=== PATIENT | female | born 1950 | race Caucasian/White ===

== ENCOUNTER 2017-06-19 08:00 | Outpatient (CLI) | payer MEDICARE, BC | END 2017-06-19 23:59 | disposition home or self-care (01) | LOC: LAB.R 08:00 | PROVIDERS: ATTEND Physician Assistant Medical | DX: R89.9 Unspecified abnormal finding in specimens from other organs, systems and tissues (principal); Z79.899 Other long term (current) drug therapy | CPT/HCPCS: 83921 ==

== ENCOUNTER 2017-06-19 09:56 | Outpatient (CLI) | payer MEDICARE, BC ==
[2017-06-19 10:26] LABS: BASOPHILS % (AUTO) 0.7 %; EOSINOPHILS # (AUTO) 0.2 10^3/uL (0.0-0.7); EOSINOPHILS % (AUTO) 3.6 %; HCT - HEMATOCRIT 41.4 % (37.0-47.0); HGB - HEMOGLOBIN 14.1 g/dL (12.0-16.0); LYMPHOCYTES # (AUTO) 1.8 10^3/uL (1.5-3.5); LYMPHOCYTES % (AUTO) 28.2 %; MEAN CORPUSCULAR HEMOGLOBIN 30.4 pg (27.0-31.0); MEAN CORPUSCULAR VOLUME 89.6 fL (81.0-99.0); MEAN PLATELET VOLUME 7.2 fL (7.9-10.8); MONOCYTES # (AUTO) 0.7 10^3/uL (0.0-1.0); MONOCYTES % (AUTO) 10.6 %; NEUTROPHILS # (AUTO) 3.7 10^3/uL (1.5-6.6); NEUTROPHILS % (AUTO) 56.9 %; RED BLOOD COUNT 4.62 10^6/uL (4.20-5.40); RED CELL DISTRIBUTION WIDTH 13.1 % (12.0-15.0); UNCORRECTED WHITE BLOOD COUNT 6.4 x10^3/uL; WHITE BLOOD COUNT 6.4 x10^3/uL (4.8-10.8)
[2017-06-19 10:41] LABS: ALBUMIN/GLOBULIN RATIO 1.2 (1.0-2.2); BILIRUBIN,TOTAL 0.6 mg/dL (0.2-1.0); BUN - BLOOD UREA NITROGEN 17 mg/dL (6-20); CALCIUM 9.8 mg/dL (8.5-10.3); CARBON DIOXIDE - CO2 27 mmol/L (21-32); CHLORIDE 103 mmol/L (101-111); CHOL/HDL RATIO 5.8 (<4.4); CHOLESTEROL 277 mg/dL; CREATININE 0.9 mg/dL (0.4-1.0); GFR - MDRD 62 (>89); GLUCOSE 88 mg/dL (70-100); HDL CHOLESTEROL 48 mg/dL; LDL/HDL RATIO 4.1 (<4.4); POTASSIUM 4.1 mmol/L (3.5-5.0); SODIUM 139 mmol/L (135-145); TOTAL PROTEIN 8.6 g/dL (6.7-8.2); TRIGLYCERIDES 169 mg/dL; VLDL CHOLESTEROL 34 mg/dL
== END 2017-06-19 09:57 | disposition home or self-care (01) ==
LOC: LAB 09:56
PROVIDERS: ATTEND Physician Assistant Medical
DX: Z82.49 Family history of ischemic heart disease and other diseases of the circulatory system (principal); Z79.899 Other long term (current) drug therapy; E78.5 Hyperlipidemia, unspecified; Z11.59 Encounter for screening for other viral diseases; E03.9 Hypothyroidism, unspecified
CPT/HCPCS: 36415; 80053; 80061; 83090; 84443; 85025; 86141; 86803

== ENCOUNTER 2017-06-19 10:25 | Outpatient (CLI) | payer MEDICARE, BC ==
--- NOTE | 2017-06-19 13:00 | XRAY Report ---
RIGHT WRIST THREE VIEWS: 06/19/2017 CLINICAL HISTORY: Pain. FINDINGS: Three views of the right wrist are performed. There is generalized bony demineralization. There is advanced degenerative change at the 1st metacarpocarpal and triscaphe articulations. No acut e fracture, malalignment or other finding. IMPRESSION: ADVANCED DEGENERATIVE CHANGE RIGHT 1ST METACARPOCARPAL AND TRISCAPHE ARTICULATIONS. JOB #: [id number] EXT JOB #:[id number]
--- NOTE | 2017-06-19 13:05 | XRAY Report ---
RIGHT HAND THREE VIEWS: 06/19/2017 CLINICAL HISTORY: Pain. COMPARISON: 01/04/2016. FINDINGS: Slight progression of advanced 1st metacarpocarpal and triscaphe degenerative changes. Ost eoarthritic degenerative change of the interphalangeal joints of the fingers with seagull deformity a t the DIP joints of the index, ring, and little fingers. No superimposed acute fracture, acute malali gnment or other finding. IMPRESSION: STABLE TO MINIMALLY PROGRESSED MODERATE TO SEVERE DEGENERATIVE CHANGES RIGHT HAND WITHOU T SUPERIMPOSED ACUTE FINDINGS. JOB #: [id number] EXT JOB #:[id number]
== END 2017-06-19 10:26 | disposition home or self-care (01) ==
LOC: DI 10:25
PROVIDERS: ATTEND Physician Assistant Medical
DX: M19.031 Primary osteoarthritis, right wrist (principal); M19.041 Primary osteoarthritis, right hand; E78.2 Mixed hyperlipidemia; Z79.899 Other long term (current) drug therapy; Z82.49 Family history of ischemic heart disease and other diseases of the circulatory system; Z11.59 Encounter for screening for other viral diseases; E03.9 Hypothyroidism, unspecified
CPT/HCPCS: 36415; 80053; 80061; 83090; 84443; 85025; 86141; 86803

== ENCOUNTER 2017-06-25 07:31 | Outpatient (CLI) | payer MEDICARE, BC ==
--- NOTE | 2017-06-25 09:43 | Ultrasound Report ---
ULTRASOUND NECK SOFT TISSUES: 06/25/2017 CLINICAL INDICATION: Swelling. TECHNIQUE: Real-time scanning was performed with office services representative static images obtained. FINDINGS: Ultrasound of the region of swelling identified by the patient was performed. Normal size d cervical lymph nodes are noted. No lymphadenopathy is appreciated. No abnormal fluid collection i s seen. IMPRESSION: NORMAL SIZED LEFT CERVICAL LYMPH NODES, CORRELATING WITH THE PALPABLE ABNORMALITIES. JOB #: [id number] EXT JOB #:[id number]
== END 2017-06-25 07:32 | disposition home or self-care (01) ==
LOC: DI 07:31
PROVIDERS: ATTEND Physician Assistant Medical
DX: R22.1 Localized swelling, mass and lump, neck (principal)
CPT/HCPCS: 76536

== ENCOUNTER 2017-08-24 07:43 | Outpatient (CLI) | payer MEDICARE, BC ==
--- NOTE | 2017-08-25 17:57 | Mammography Report ---
DIGITAL SCREENING MAMMOGRAM: 08/24/2017 CLINICAL INDICATION: A 66-year-old for screening. COMPARISON: 07/2016, 02/2015, 12/2012, 02/2011. TECHNIQUE: Routine CC and MLO projections were obtained of the breasts. The breasts again demonstrate heterogeneously dense fibroglandular parenchyma bilaterally. Coarse an d punctate, typically benign calcifications are present. Intramammary lymph nodes are stable. No garcia spicious masses, clustered microcalcifications, or regions of architectural distortion are identified . IMPRESSION: BENIGN FINDINGS. RECOMMENDATION: ROUTINE ANNUAL SCREENING UNLESS OTHERWISE CLINICALLY INDICATED. BIRADS CATEGORY: 2, BENIGN FINDINGS. STANDARD QUALIFYING STATEMENTS 1. This examination was reviewed with the aid of Computed-Aided Detection (CAD). 2. A negative or benign imaging report should not delay biopsy if clinically suspicious findings are present. Consider surgical consultation if warranted. More than 5% of cancers are not identified b y imaging. 3. Dense breasts may obscure an underlying neoplasm. JOB #: [id number] EXT JOB #:[id number]
== END 2017-08-24 07:44 | disposition home or self-care (01) ==
LOC: DI 07:43
PROVIDERS: ATTEND Physician Assistant Medical
DX: Z12.31 Encounter for screening mammogram for malignant neoplasm of breast (principal)
CPT/HCPCS: 77067

== ENCOUNTER 2017-08-24 07:45 | Outpatient (CLI) | payer MEDICARE, BC ==
--- NOTE | 2017-08-24 14:25 | DEXA Report ---
DEXA SCAN: 08/24/2017 CLINICAL INDICATION: Postmenopausal. TECHNIQUE: Dual energy x-ray absorptiometry (DXA) was performed on a [employer] system. Regions measured are the AP spine, femoral neck, and, if needed, forearm. COMPARISON: None. In accordance with the International Society for Clinical Densitometry (ISCD) guidelines, data from previous exams may be reanalyzed using current recommendations and techniques. This is done to allow a more accurate basis for comparison with the current study. FINDINGS LUMBAR SPINE DATA: REGION BMD (g/cm/cm) T-SCORE Z-SCORE L1 0.918 -1.8 0.0 L2 1.006 -1.6 0.1 L3 1.060 -1.2 0.6 L4 0.977 -1.9 -0.1 TOTAL L1-L4 0.993 -1.6 0.2 NOTE: All evaluable vertebrae are used for classification. HIP DATA: REGION BMD (g/cm/cm) T-SCORE Z-SCORE Neck 0.673 -2.6 -1.0 TOTAL 0.647 -2.9 -1.4 NOTE: The femoral neck or total proximal femur, whichever is lowest, is used for classification. IMPRESSION THE WHO CLASSIFICATION BASED ON THE INTERNATIONAL REFERENCE STANDARD: OSTEOPOROSIS. FRACTURE RISK: HIGH. RECOMMENDATION: Patients with diagnosis of osteoporosis or osteopenia should have regular bone mineral density assessment. For those eligible for Medicare, routine testing is allowed once every 2 years. Testing frequency can be increased for patients who have rapidly progressing disease or for those who are receiving medical therapy to restore bone mass. COMMENT: World Health Organization (WHO) definitions for osteoporosis and osteopenia: NORMAL BMD: T-score at -1.0 or higher, fracture risk is low. OSTEOPENIA BMD: T-score between -1.0 and -2.5, fracture risk is increased. OSTEOPOROSIS BMD: T-score at -2.5 or lower, fracture risk high. National Osteoporosis Foundation recommends: 1. Obtain adequate dietary calcium (at least 1200 mg per day) and vitamin D (400 -800 international units per day). 2. Participate, as appropriate, in regular weightbearing and muscle- strengthening exercise. 3. Avoid tobacco use and reduce alcohol and caffeine intake. 4. For more detailed information see the website at www.NOF.org. MTDD
== END 2017-08-24 07:46 | disposition home or self-care (01) ==
LOC: DI 07:45
PROVIDERS: ATTEND Physician Assistant Medical
DX: M81.0 Age-related osteoporosis without current pathological fracture (principal); Z78.0 Asymptomatic menopausal state
CPT/HCPCS: 77080

== ENCOUNTER 2017-08-24 07:46 | Outpatient (CLI) | payer MEDICARE, BC | END 2017-08-24 07:47 | disposition home or self-care (01) | LOC: DI 07:46 | PROVIDERS: ATTEND Internal Medicine Cardiovascular Disease | DX: R06.00 Dyspnea, unspecified (principal); Z82.49 Family history of ischemic heart disease and other diseases of the circulatory system; M81.0 Age-related osteoporosis without current pathological fracture; Z78.0 Asymptomatic menopausal state | CPT/HCPCS: 77080; 93306 ==

== ENCOUNTER 2017-09-03 09:04 | Outpatient (CLI) | payer MEDICARE, BC ==
--- NOTE | 2017-09-03 13:43 | CARDIAC PROCEDURE NOTE ---
DATE OF SERVICE: 09/03/2017 00:00:00 PROCEDURE: Cardiac exercise tolerance test ORDERING PROVIDER: Dr. Sasha Pascal PRIMARY CARE PROVIDER: Es Carrillo PA-C CLINICAL HISTORY: 66-year-old female without known coronary artery disease. Symptoms: Dyspnea on exertion. Procedures: Previous ETT. Risk factors - Age, family history, and hyperlipidemia. Vital signs: BP 106/70, pulse 79, height 62 inches, weight 135 pounds. PROCEDURAL FINDINGS: The patient performed treadmill exercise, using a Ab protocol, completing 9 minutes, 13 seconds, and completing an estimated workload of 10.1 metabolic equivalents (METS). Maximum blood pressure was 130/64 with a maximum heart rate of 150 bpm, or 98% MPHR for age. Her first recovery BP dropped to 106/60, but was asymptomatic. The patient had no chest pain and stopped due to knee arthritis. The resting ECG showed normal sinus rhythm with a slight intraventricular conduction delay, seen in lead V2 only. Maximum ST segment depression with stress was less than 0.5 mm and upsloping. There was no ectopy. The one minute recovery heart rate was within normal limits. Maximal HRxBP = 19 , 500. FINAL IMPRESSION 1. Anginal index of 0, negative stress ECG for angina. 2. Negative cardiac stress test for ischemia by electrocardiographic criteria. 3. No ectopy. 4. Await findings of myocardial perfusion scan. JOB #: [id number] EXT JOB #:[id number] MTDD
[2017-09-03 18:23] VITALS: BP 106/70
--- NOTE | 2017-09-07 10:22 | XRAY Report ---
CARDIOVASCULAR TREADMILL TEST: There was no imaging performed for this exam. Procedure notes and results available in the EMR. STEPHANIE
== END 2017-09-03 09:05 | disposition home or self-care (01) ==
LOC: DI 09:04
PROVIDERS: ATTEND Internal Medicine Cardiovascular Disease
DX: R06.00 Dyspnea, unspecified (principal); E03.9 Hypothyroidism, unspecified; Z79.899 Other long term (current) drug therapy; E78.5 Hyperlipidemia, unspecified
CPT/HCPCS: 36415; 84443; 86141; 93017

== ENCOUNTER 2017-10-09 10:56 | Outpatient (CLI) | payer MEDICARE, BC ==
[2017-10-09 11:21] LABS: BASOPHILS # (AUTO) 0.1 10^3/uL (0.0-0.1); EOSINOPHILS # (AUTO) 0.2 10^3/uL (0.0-0.7); EOSINOPHILS % (AUTO) 3.7 %; HGB - HEMOGLOBIN 12.7 g/dL (12.0-16.0); LYMPHOCYTES % (AUTO) 33.5 %; MEAN CORPUSCULAR HEMOGLOBIN 30.4 pg (27.0-31.0); MEAN CORPUSCULAR HGB CONC 33.9 g/dL (32.0-36.0); MEAN CORPUSCULAR VOLUME 89.7 fL (81.0-99.0); MEAN PLATELET VOLUME 7.2 fL (7.9-10.8); MONOCYTES # (AUTO) 0.6 10^3/uL (0.0-1.0); MONOCYTES % (AUTO) 10.8 %; PLT - PLATELET COUNT 225 10^3/uL (130-450); RED BLOOD COUNT 4.17 10^6/uL (4.20-5.40); RED CELL DISTRIBUTION WIDTH 13.1 % (12.0-15.0); WHITE BLOOD COUNT 5.8 x10^3/uL (4.8-10.8)
[2017-10-09 11:37] LABS: ALBUMIN 4.3 g/dL (3.2-5.5); ALBUMIN/GLOBULIN RATIO 1.3 (1.0-2.2); BILIRUBIN,TOTAL 0.5 mg/dL (0.2-1.0); CALCIUM 9.4 mg/dL (8.5-10.3); CREATININE 0.8 mg/dL (0.4-1.0); TOTAL PROTEIN 7.5 g/dL (6.7-8.2)
== END 2017-10-09 10:57 | disposition home or self-care (01) ==
LOC: LAB 10:56
PROVIDERS: ATTEND Internal Medicine
DX: R53.83 Other fatigue (principal); R89.9 Unspecified abnormal finding in specimens from other organs, systems and tissues; E03.9 Hypothyroidism, unspecified
CPT/HCPCS: 36415; 80053; 82550; 84443; 85025

== ENCOUNTER 2017-12-01 10:30 | Outpatient (CLI) | payer MEDICARE, BC | END 2017-12-01 10:31 | disposition home or self-care (01) | LOC: LAB.R 10:30 | PROVIDERS: ATTEND Physician Assistant Medical | DX: B34.9 Viral infection, unspecified (principal) | CPT/HCPCS: 87275; 87276 ==

== ENCOUNTER 2018-03-15 16:13 | Outpatient (CLI) | payer MEDICARE, BC ==
--- NOTE | 2018-03-16 04:32 | XRAY Report ---
Procedure Date: 03/15/2018 Accession Number: [id number] / [id number] Procedure: XR - Chest 2 View X-Ray CPT Code: 25510 FULL RESULT: EXAM: CHEST RADIOGRAPHY EXAM DATE: 03/15/2018 04:43 PM. CLINICAL HISTORY: COMM ACQUIRED PNEUMONIA,REACTIVE AIRWAY DISEASE. COMPARISON: 08/10/2015. TECHNIQUE: 2 views. FINDINGS: Lungs/Pleura: No focal opacities evident. No pleural effusion. No pneumothorax. Normal volumes. Mediastinum: Heart and mediastinal contours are unremarkable. Other: None. IMPRESSION: Normal 2-view chest radiography. RADIA
== END 2018-03-15 16:14 | disposition home or self-care (01) ==
LOC: DI 16:13
PROVIDERS: ATTEND Physician Assistant Medical
DX: J18.9 Pneumonia, unspecified organism (principal)
CPT/HCPCS: 71046

== ENCOUNTER 2018-05-25 08:48 | Outpatient (CLI) | payer MEDICARE, BC ==
[2018-05-25 10:18] LABS: CHOL/HDL RATIO 5.6 (<4.4); CHOLESTEROL 242 mg/dL; HB2 TOTAL 14.5 g/dL; HDL CHOLESTEROL 43 mg/dL; HEMOGLOBIN A1C 0.53 g/dL; HEMOGLOBIN A1C % 5.5 % (4.6-6.2); LDL CHOLESTEROL,CALCULATED 163 mg/dL; LDL/HDL RATIO 3.8 (<4.4); VLDL CHOLESTEROL 36 mg/dL
== END 2018-05-25 08:49 | disposition home or self-care (01) ==
LOC: LAB 08:48
PROVIDERS: ATTEND Internal Medicine Cardiovascular Disease
DX: E78.5 Hyperlipidemia, unspecified (principal)
CPT/HCPCS: 36415; 80061; 83036; 83721

== ENCOUNTER 2018-07-19 08:00 | Outpatient (CLI) | payer MEDICARE, BC ==
[2018-07-19 18:28] LABS: BASOPHILS % (AUTO) 0.9 %; EOSINOPHILS % (AUTO) 0.7 %; HGB - HEMOGLOBIN 13.8 g/dL (12.0-16.0); LYMPHOCYTES # (AUTO) 1.2 10^3/uL (1.5-3.5); MEAN CORPUSCULAR HEMOGLOBIN 29.8 pg (27.0-31.0); MEAN CORPUSCULAR HGB CONC 33.6 g/dL (32.0-36.0); MEAN CORPUSCULAR VOLUME 88.8 fL (81.0-99.0); MONOCYTES # (AUTO) 0.6 10^3/uL (0.0-1.0); MONOCYTES % (AUTO) 15.8 %; NEUTROPHILS # (AUTO) 1.7 10^3/uL (1.5-6.6); NEUTROPHILS % (AUTO) 49.6 %; PLT - PLATELET COUNT 218 10^3/uL (130-450); RED BLOOD COUNT 4.62 10^6/uL (4.20-5.40); RED CELL DISTRIBUTION WIDTH 13.4 % (12.0-15.0); WHITE BLOOD COUNT 3.5 x10^3/uL (4.8-10.8)
[2018-07-19 19:09] LABS: RHEUMATOID FACTOR NEGATIVE (Negative)
[2018-07-19 19:12] LABS: ALBUMIN/GLOBULIN RATIO 1.1 (1.0-2.2); BILIRUBIN,TOTAL 0.6 mg/dL (0.2-1.0); CALCIUM 8.9 mg/dL (8.5-10.3); CREATININE 0.9 mg/dL (0.4-1.0); CRP - C-REACTIVE PROTEIN 3.3 mg/dL (0-1.0); TOTAL PROTEIN 7.8 g/dL (6.7-8.2)
[2018-07-19 22:14] LABS: BILIRUBIN,URINE NEGATIVE (NEGATIVE); GLUCOSE, URINE (UA) NEGATIVE (NEGATIVE); KETONES,URINE (UA) TRACE mg/dL (NEGATIVE); LEUKOCYTE ESTERASE, URINE NEGATIVE (NEGATIVE); NITRITE,URINE NEGATIVE (NEGATIVE); OCCULT BLOOD,URINE SMALL (NEGATIVE); PH,URINE 5.5 PH (5.0-7.5); PROTEIN,URINE NEGATIVE (NEGATIVE); UROBILINOGEN,URINE 0.2 (NORMAL) E.U./dL (NORMAL)
[2018-07-19 22:35] LABS: CLARITY,URINE CLEAR (CLEAR)
[2018-07-19 22:36] LABS: BACTERIA,URINE None Seen /HPF (None Seen); RBC,URINE 0-5 /HPF (0-5); SQUAMOUS EPITHELIAL CELL,UR FEW Squamous (<= Few)
[2018-07-22 17:51] LABS: ANA SCREEN POSITIVE (NEGATIVE)
== END 2018-07-19 08:01 | disposition home or self-care (01) ==
LOC: LAB.R 08:00
PROVIDERS: ATTEND Physician Assistant Medical
DX: R50.9 Fever, unspecified (principal)
CPT/HCPCS: 80053; 81001; 81003; 83615; 83690; 84443; 85025; 85651; 86038; 86140; 86430; 87086

== ENCOUNTER 2018-07-21 13:22 | Outpatient (CLI) | payer MEDICARE, BC ==
[2018-07-22 13:01] LABS: HEPATITIS A IGM NON-REACTIVE (NON-REACTIVE); HEPATITIS B CORE ANTIBODY IGM NON-REACTIVE (NON-REACTIVE); HEPATITIS B SURFACE ANTIGEN NON-REACTIVE (NON-REACTIVE); HEPATITIS C ANTIBODY NON-REACTIVE (NON-REACTIVE)
== END 2018-07-21 13:23 | disposition home or self-care (01) ==
LOC: LAB.N 13:22
PROVIDERS: ATTEND Physician Assistant Medical
DX: R79.89 Other specified abnormal findings of blood chemistry (principal); R94.5 Abnormal results of liver function studies; R50.9 Fever, unspecified
CPT/HCPCS: 36415; 80074

== ENCOUNTER 2018-07-27 13:19 | Outpatient (CLI) | payer MEDICARE, BC ==
[2018-07-27 18:44] LABS: BASOPHILS # (AUTO) 0.1 10^3/uL (0.0-0.1); BASOPHILS % (AUTO) 1.1 %; EOSINOPHILS # (AUTO) 0.4 10^3/uL (0.0-0.7); EOSINOPHILS % (AUTO) 8.4 %; HGB - HEMOGLOBIN 12.4 g/dL (12.0-16.0); LYMPHOCYTES # (AUTO) 1.7 10^3/uL (1.5-3.5); LYMPHOCYTES % (AUTO) 32.7 %; MEAN CORPUSCULAR HGB CONC 33.3 g/dL (32.0-36.0); MEAN PLATELET VOLUME 7.4 fL (7.9-10.8); MONOCYTES # (AUTO) 0.8 10^3/uL (0.0-1.0); MONOCYTES % (AUTO) 15.1 %; NEUTROPHILS # (AUTO) 2.3 10^3/uL (1.5-6.6); NEUTROPHILS % (AUTO) 42.7 %; PLT - PLATELET COUNT 386 10^3/uL (130-450); RED BLOOD COUNT 4.15 10^6/uL (4.20-5.40); RED CELL DISTRIBUTION WIDTH 13.6 % (12.0-15.0); WHITE BLOOD COUNT 5.3 x10^3/uL (4.8-10.8)
[2018-07-27 19:01] LABS: ALBUMIN 3.7 g/dL (3.2-5.5); ALBUMIN/GLOBULIN RATIO 1.1 (1.0-2.2); BILIRUBIN,TOTAL 0.5 mg/dL (0.2-1.0); CALCIUM 8.3 mg/dL (8.5-10.3); CREATININE 0.8 mg/dL (0.4-1.0); TOTAL PROTEIN 7.2 g/dL (6.7-8.2)
== END 2018-07-27 13:20 | disposition home or self-care (01) ==
LOC: LAB.N 13:19
PROVIDERS: ATTEND Physician Assistant Medical
DX: R79.82 Elevated C-reactive protein (CRP) (principal); R50.9 Fever, unspecified; R79.89 Other specified abnormal findings of blood chemistry
CPT/HCPCS: 36415; 80053; 83615; 83690; 85025; 86140

== ENCOUNTER 2018-09-13 10:07 | Outpatient (CLI) | payer MEDICARE, BC ==
--- NOTE | 2018-09-14 08:35 | Mammography Report ---
Reason: SCREENING MAMMO Procedure Date: 09/13/2018 Accession Number: [id number] / [id number] Procedure: MGN - Screening Mammo Dig Bilat CPT Code: FULL RESULT: EXAM: Screening Mammo Dig Bilat DATE: 09/13/2018 10:27 AM CLINICAL HISTORY: Screening. TECHNIQUE: Bilateral CC and MLO views were obtained. COMPARISON: 08/24/2017 through 03/20/2015 FINDINGS: The breasts demonstrate heterogeneously dense fibroglandular parenchyma bilaterally. Bilateral breasts: There are no suspicious masses, calcifications or areas of distortion. IMPRESSION: Negative examination RECOMMENDATION: Routine annual screening unless otherwise clinically indicated. BI-RADS CATEGORY 1: Negative STANDARD QUALIFYING STATEMENTS: 1. This examination was reviewed with the aid of Computer-Aided Detection (CAD). 2. A negative or benign imaging report should not preclude biopsy if clinically suspicious findings are present. 3. Dense breasts may obscure an underlying neoplasm. 4. This examination was reviewed without the aid of 3D breast imaging (tomosynthesis).
== END 2018-09-13 10:08 | disposition home or self-care (01) ==
LOC: DI.N 10:07
DX: Z12.31 Encounter for screening mammogram for malignant neoplasm of breast (principal)
CPT/HCPCS: 77067

== ENCOUNTER 2018-12-15 09:00 | Outpatient (CLI) | payer MEDICARE, BC ==
--- NOTE | 2018-12-15 11:06 | XRAY Report ---
Reason: R hand pain swelling Procedure Date: 12/15/2018 Accession Number: [id number] / [id number] Procedure: XRN - Hand 3 View RT CPT Code: FULL RESULT: EXAM: RIGHT HAND RADIOGRAPHY EXAM DATE: 12/15/2018 09:23 AM. CLINICAL HISTORY: Right hand pain and swelling. COMPARISON: HAND 3 VIEW RT 06/19/2017 10:45 AM. TECHNIQUE: 3 views. FINDINGS: Bones: No acute fracture appreciated. Joints: Joint space narrowing of the IP and DIP joints of the digits with moderate marginal osteophytes of the second through fifth DIPs. Stable severe productive arthrosis of the base of thumb and moderate to severe degenerative changes of the STT joint of the wrist. Soft Tissues: Mild soft tissue prominence adjacent to digit osteophytosis, similar to the prior exam. No focal soft tissue swelling. IMPRESSION: Stable pattern of osteoarthritis predominantly of the DIP joints of the second through fifth digits and at base of thumb. No acute fracture appreciated. RADIA
== END 2018-12-15 09:01 | disposition home or self-care (01) ==
LOC: DI.N 09:00
PROVIDERS: ATTEND Family Medicine
DX: M19.041 Primary osteoarthritis, right hand (principal)

== ENCOUNTER 2019-01-18 08:00 | Outpatient (CLI) | payer MEDICARE, BC ==
[2019-01-18 12:40] LABS: CHOL/HDL RATIO 5.9 (<4.4); CHOLESTEROL 246 mg/dL; HDL CHOLESTEROL 42 mg/dL; LDL CHOLESTEROL,CALCULATED 165 mg/dL; LDL/HDL RATIO 3.9 (<4.4); VLDL CHOLESTEROL 39 mg/dL
== END 2019-01-18 08:01 | disposition home or self-care (01) ==
LOC: LAB.N 08:00
PROVIDERS: ATTEND Internal Medicine Cardiovascular Disease
DX: E78.5 Hyperlipidemia, unspecified (principal)
CPT/HCPCS: 36415; 80061; 83721

== ENCOUNTER 2019-02-21 12:27 | Emergency (ER) | payer OTHER, MEDICARE, BC ==
[2019-02-21 12:44] VITALS: BP 122/69
--- NOTE | 2019-02-21 13:29 | ED Physician Documentation ---
PD HPI TRUNK INJURY - Stated complaint Stated Complaint: RIB PX - Chief complaint Chief Complaint: Trauma Ch/Bk - History obtained from History obtained from: Patient - History of Present Illness Location: Right chest Type of injury: Fall, Blunt / blow Timing - onset: How many days ago (5) Timing - duration: Days (5) Timing - details: Abrupt onset, Still present Quality: Pain, Spasm, Sharp Improved by: Rest, Immobilization Worsened by: Moving, Palpating Associated symtptoms: No: Weakness, Numbness, Tingling, Swelling, Discoloration, Feel faint, Syncope Contributing factors: No: Anticoagulated Where injury occured: Work Similar symptoms before: Has not had sx before Recently seen: Not recently seen - Additional information Additional information: 68-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 She did not have other injuries from the fall. She is complaining of progressive pain in the right anterior lateral chest wall that is made it difficult for her to sleep. She is not having difficulty breathing she is having trouble with pain with coughing and pain with any movement. The pain is much worse yesterday. Review of Systems Constitutional: denies: Fever Eyes: denies: Decreased vision Ears: denies: Ear pain Nose: denies: Congestion Throat: denies: Sore throat Cardiac: reports: Chest pain / pressure. denies: Palpitations, Pedal edema, Calf pain Respiratory: denies: Dyspnea, Cough GI: denies: Abdominal Pain, Nausea, Vomiting : denies: Dysuria PD PAST MEDICAL HISTORY - Past Medical History Cardiovascular: High cholesterol Respiratory: Asthma Musculoskeletal: Osteoarthritis - Past Surgical History Ortho: Other /[employer]: Hysterectomy HEENT: Tonsil/Adenoidectomy - Present Medications Home Medications: Ambulatory Orders Medication Instructions Recorded Confirmed traMADol [Ultram] 50 - 100 mg PO Q6H PRN #20 tablet 02/21/19 - Allergies Allergies/Adverse Reactions: Allergies Allergy/AdvReac Type Severity Reaction Status Date / Time erythromycin base Allergy Unknown Verified 02/21/19 12:45 Penicillins Allergy Unknown Verified 02/21/19 12:45 Sulfa (Sulfonamide Allergy Unknown Verified 02/21/19 12:45 Antibiotics) PD ED PE NORMAL - Vitals Vital signs reviewed: Yes (normal ) - General General: Alert and oriented X 3, No acute distress, Well developed/nourished, Other (winches with movement or coughing ) - HEENT HEENT: Atraumatic, PERRL - Neck Neck: Supple, no meningeal sign, No bony TTP - Cardiac Cardiac: RRR, No murmur - Respiratory Respiratory: No respiratory distress, Clear bilaterally, Other (tenderness to the chest wall anteriolaterally over the 5th,6th rib) - Abdomen Abdomen: Soft, Non tender - Back Back: No CVA TTP, No spinal TTP - Derm Derm: Normal color, Warm and dry, No rash - Extremities Extremities: No deformity, No edema - Neuro Neuro: Alert and oriented X 3, hadoop infrastructure 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 No pneumothorax. Clear lungs.), EMP read indepedently, See rad report Departure - Departure Disposition: 01 Home, Self Care Clinical Impression: Contusion of chest wall Qualifiers: Encounter type: initial encounter Laterality: right Qualified Code(s): S20.211A - Contusion of right front wall of thorax, initial encounter Condition: Stable Instructions: ED Contusion Vs Minor Fx Rib Follow-Up: Omer Park MD [Primary Care Provider] - Prescriptions: traMADol [Ultram] 50 - 100 mg PO Q6H PRN #20 tablet PRN Reason: Pain
--- NOTE | 2019-02-21 14:07 | XRAY Report ---
Reason: pain Procedure Date: 02/21/2019 Accession Number: [id number] / [id number] Procedure: XR - Ribs w/PA Chest RT CPT Code: FULL RESULT: EXAM: RIGHT RIB RADIOGRAPHY EXAM DATE: 02/21/2019 01:41 PM. CLINICAL HISTORY: Pain. COMPARISON: CHEST 2 VIEW 03/15/2018 4:37 PM. TECHNIQUE: 1 view of the chest and 2 views of the ribs. FINDINGS: Bones: Normal. No fracture or bone lesion. Lungs: No focal opacities. No pneumothorax. No pleural effusions. Mediastinum: Heart and mediastinal contours are unremarkable. Other: None. IMPRESSION: No acute displaced rib fractures. No pneumothorax. Clear lungs. RADIA
== END 2019-02-21 14:17 | disposition home or self-care (01) ==
LOC: ED 12:27
DX: S20.211A Contusion of right front wall of thorax, initial encounter (principal); W03.XXXA Other fall on same level due to collision with another person, initial encounter; Y93.01 Activity, walking, marching and hiking; Y92.213 High school as the place of occurrence of the external cause; Y99.0 Civilian activity done for income or pay
CPT/HCPCS: 99283

== ENCOUNTER 2019-11-21 08:41 | Outpatient (CLI) | payer MEDICARE, BC ==
--- NOTE | 2019-11-29 13:17 | Mammography Report ---
Reason: ROUTINE MAMMO Procedure Date: 11/21/2019 Accession Number: [id number] / [id number] Procedure: NIK - Screening Mammo w/Sammy CPT Code: Final Report FULL RESULT: EXAM: Screening Mammo w/Sammy DATE: 11/21/2019 9:20 AM CLINICAL HISTORY: Screening encounter. TECHNIQUE: (B) - Bilateral CC and MLO views were obtained. COMPARISON: 09/13/2018 through 03/24/2011. PARENCHYMAL PATTERN: (D) - The breast(s) demonstrate(s) heterogeneously dense fibroglandular parenchyma. FINDINGS: There are no suspicious masses, calcifications, or areas of distortion. IMPRESSION: Negative examination. BI-RADS category 1. RECOMMENDATION: (ANNUAL) - Recommend routine annual screening mammography. BI-RADS CATEGORY: (1) - Negative. STANDARD QUALIFYING STATEMENTS: 1. This examination was not reviewed with the aid of Computer-Aided Detection (CAD). 2. A negative or benign imaging report should not preclude biopsy if clinically suspicious findings are present. 3. Dense breasts may obscure an underlying neoplasm. 4. This examination was reviewed with the aid of 3D breast imaging (tomosynthesis).
== END 2019-11-21 08:42 | disposition home or self-care (01) ==
LOC: DI 08:41
DX: Z12.31 Encounter for screening mammogram for malignant neoplasm of breast (principal)
CPT/HCPCS: 77063; 77067

== ENCOUNTER 2020-07-19 15:03 | Outpatient (CLI) | payer MEDICARE, BC ==
--- NOTE | 2020-07-19 17:27 | XRAY Report ---
PROCEDURE: Hip w/Pelvis 2-3V RT INDICATIONS: RT HIP PAIN TECHNIQUE: AP pelvis with lateral view(s) of the bilateral hip(s). COMPARISON: None. FINDINGS: Bones: Diffuse osteopenia. No fractures or dislocations. Pelvic ring appears intact. No suspicious bony lesions. Lower lumbar spondylosis. Corticated ossifications project over the superolateral aspe ct of the bilateral acetabular rims. These are chronic in appearance. Soft tissues: The visualized bowel gas pattern is normal. No suspicious soft tissue calcifications. IMPRESSION: Right hip without acute radiographic abnormalities. Lower lumbar spondylosis. Reviewed by: Narinder Vick MD on 07/19/2020 5:26 PM PDT Approved by: Narinder Vick MD on 07/19/2020 5:26 PM PDT Station ID: [id number]
== END 2020-07-19 15:04 | disposition home or self-care (01) ==
LOC: DI 15:03
PROVIDERS: ATTEND Internal Medicine
DX: M47.816 Spondylosis without myelopathy or radiculopathy, lumbar region (principal)

== ENCOUNTER 2020-08-21 09:44 | Outpatient (CLI) | payer MEDICARE, BC ==
--- NOTE | 2020-08-21 10:23 | DEXA Report ---
PROCEDURE: Dexa Spine and/or Hip INDICATIONS: SCREENING FOR OSTEOPOROSIS, POSTMENOPAUSAL TECHNIQUE: Dual energy x-ray absorptiometry (DXA) was performed on a [employer] System. Regions measur ed are the AP Spine, femoral neck, and if needed forearm. COMPARISON: 08/24/2017. FINDINGS: Lumbar Spine: Bone Mineral Density 0.986 g/cm/cm,T score -1.6, osteopenia Left Femoral Neck: Bone Mineral Density 0.617 g/cm/cm, T score -3.1, osteoporosis (T score greater or equal to -1.0: NORMAL) (T score from -1.1 to -2.4: OSTEOPENIA) (T score less than or equal to -2.5 to: OSTEOPOROSIS) Impression: OSTEOPOROSIS. Patient is at high risk for fracture. Patients with diagnosis of osteoporosis or osteopenia should have regular bone mineral density assess ment. For those eligible for Medicare, routine testing is allowed once every 2 years. Testing frequ ency can be increased for patients who have rapidly progressing disease or for those who are receivin g medical therapy to restore bone mass. Reviewed by: Narinder Vick MD on 08/21/2020 10:22 AM PST Approved by: Narinder Vick MD on 08/21/2020 10:22 AM PST Station ID: [id number]
== END 2020-08-21 09:45 | disposition home or self-care (01) ==
LOC: DI 09:44
PROVIDERS: ATTEND Internal Medicine
DX: Z13.820 Encounter for screening for osteoporosis (principal); M81.0 Age-related osteoporosis without current pathological fracture
CPT/HCPCS: 77080

== ENCOUNTER 2020-10-12 10:26 | Outpatient (CLI) | payer MEDICARE, BC ==
--- NOTE | 2020-10-12 17:27 | XRAY Report ---
PROCEDURE: Ankle 3 View LT INDICATIONS: LT FOOT AND ANKLE PAIN TECHNIQUE: 3 views of the ankle were acquired. COMPARISON: X-ray foot 10/12/2019 FINDINGS: Bones: No fractures or dislocations. No suspicious bony lesions. Soft tissues: No tibiotalar joint effusion. Achilles tendon appears normal. Mild prominence of the plantar soft tissues are noted. IMPRESSION: 1. No visualized acute fracture or dislocation. However, occult injury cannot be excluded. Recommend short interval imaging follow-up in 7-10 days as clinically indicated for additional evaluation. 2. Mild prominence of the plantar soft tissues. Recommend correlation of potential fasciitis. Reviewed by: Ktae Norman MD on 10/12/2020 5:26 PM PST Approved by: Kate Norman MD on 10/12/2020 5:26 PM PST Station ID: [id number]
--- NOTE | 2020-10-13 06:15 | XRAY Report ---
PROCEDURE: Foot 3 View LT INDICATIONS: LT FOOT AND ANKLE PAIN TECHNIQUE: 3 views of the foot were acquired. COMPARISON: X-ray ankle 10/12/2019 FINDINGS: Bones: No fractures or dislocations. No suspicious bony lesions. Soft tissues: No tibiotalar joint effusion. Achilles tendon appears normal. Mild prominence of the plantar soft tissues are noted. IMPRESSION: 1. No visualized acute fracture or dislocation. However, occult injury cannot be excluded. Recommend short interval imaging follow-up in 7-10 days as clinically indicated for additional evaluation. 2. Mild prominence of the plantar soft tissues. Recommend correlation of potential fasciitis. Reviewed by: Kate Norman MD on 10/12/2020 5:25 PM PST Approved by: Kate Norman MD on 10/12/2020 5:25 PM [facility] Station ID: [id number]
== END 2020-10-12 10:27 | disposition home or self-care (01) ==
LOC: DI.N 10:26
PROVIDERS: ATTEND Physician Assistant
DX: R93.89 Abnormal findings on diagnostic imaging of other specified body structures (principal)

== ENCOUNTER 2020-10-12 19:53 | Outpatient (CLI) | payer MEDICARE, BC ==
--- NOTE | 2020-10-12 21:30 | Ultrasound Report ---
PROCEDURE: Duplex Ext Veins Left INDICATIONS: PAIN IN LLE, PAIN IN LT ANKLE, PAIN IN LT FOOT TECHNIQUE: Real-time imaging, as well as color and pulse Doppler interrogation, were performed of the lower extr emity deep veins from the inguinal ligament to the popliteal fossa. COMPARISON: None. FINDINGS: There is venous thrombosis in the superficial femoral vein, which is nonocclusive and ecce ntrically positioned within the vessel lumen. The remaining deep veins are normally compressible, and free of intraluminal thrombus. Color and pulse Doppler demonstrate normal phasic intraluminal flow. There is normal augmentation response to distal compression maneuver. IMPRESSION: Nonocclusive thrombus in the distal superficial femoral vein medial to the left knee ext ending inferiorly. This may be chronic in nature given the eccentric nonocclusive appearance. Reviewed by: Neville Worthy MD on 10/12/2020 9:28 PM PST Approved by: Neville Worthy MD on 10/12/2020 9:28 PM PST Station ID: [id number]
== END 2020-10-12 19:54 | disposition home or self-care (01) ==
LOC: DI 19:53
PROVIDERS: ATTEND Physician Assistant
DX: I82.812 Embolism and thrombosis of superficial veins of left lower extremity (principal)

== ENCOUNTER 2020-10-22 11:59 | Outpatient (CLI) | payer MEDICARE, BC ==
--- NOTE | 2020-10-22 14:10 | Ultrasound Report ---
PROCEDURE: Duplex Ext Veins Left INDICATIONS: DVT LLE TECHNIQUE: Real-time imaging, as well as color and pulse Doppler interrogation, were performed of the lower extr emity deep veins from the inguinal ligament to the popliteal fossa. COMPARISON: 10/12/2019 FINDINGS: The deep veins are normally compressible, and free of intraluminal thrombus. Color and pu lse Doppler demonstrate normal phasic intraluminal flow. There is normal augmentation response to di stal compression maneuver. IMPRESSION: No sonographic evidence of DVT. Previously demonstrated nonocclusive thrombus in the dis darin superficial femoral vein is no longer identified. Reviewed by: Neville Worthy MD on 10/22/2020 2:08 PM PST Approved by: Neville Worthy MD on 10/22/2020 2:08 PM PST Station ID: [id number]
== END 2020-10-22 12:00 | disposition home or self-care (01) ==
LOC: DI 11:59
PROVIDERS: ATTEND Physician Assistant
DX: I82.812 Embolism and thrombosis of superficial veins of left lower extremity (principal)

== ENCOUNTER 2020-10-31 10:20 | Outpatient (CLI) | payer MEDICARE, BC ==
--- NOTE | 2020-10-31 13:35 | CT Report ---
PROCEDURE: Abdomen/Pelvis WO INDICATIONS: HEMATURIA TECHNIQUE: Noncontrast 5 mm thick sections acquired from the diaphragms to the symphysis. 5 mm coronal and sagi ttal reformats were then performed. For radiation dose reduction, the following was used: automated exposure control, adjustment of mA and/or kV according to patient size. COMPARISON: None. FINDINGS: Image quality: Excellent. ABDOMEN: Lung bases: Lung bases are clear. Heart size is normal. Moderate, partially imaged coronary artery calcification. Solid organs: Liver and spleen are normal in size. Gallbladder is unremarkable. Pancreas is normal in contours. No adrenal nodules. Kidneys are normal in size, without hydronephrosis or nephrolithi asis. Peritoneum and bowel: Unenhanced bowel loops demonstrate normal wall thickness and caliber. No free fluid or air. Nodes and vessels: No retroperitoneal or mesenteric adenopathy by size criteria. Aorta and inferior vena cava are normal in caliber. Moderate abdominal aortic calcification. Miscellaneous: There are necked, fat-containing supraumbilical midline ventral hernia. The neck measu res 6 mm in CC diameter.. PELVIS: The uterus is absent. Miscellaneous: Tiny fat-containing left inguinal hernia. Bones: No suspicious bony lesions. Mild levoscoliosis of lumbar spine. No vertebral body compressio n fractures. IMPRESSION: 1. Etiology of hematuria is not found on this exam. 2. Coronary and systemic atherosclerotic calcification. 3. Tiny supraumbilical and left inguinal hernias containing only fat. Reviewed by: Melisa Knight MD on 10/31/2020 1:34 PM PST Approved by: Melisa Knight MD on 10/31/2020 1:34 PM PST Station ID: [id number]
== END 2020-10-31 10:21 | disposition home or self-care (01) ==
LOC: DI 10:20
PROVIDERS: ATTEND Physician Assistant
DX: R31.9 Hematuria, unspecified (principal); K42.9 Umbilical hernia without obstruction or gangrene; K40.90 Unilateral inguinal hernia, without obstruction or gangrene, not specified as recurrent

== ENCOUNTER 2020-12-17 07:00 | Outpatient (CLI) | payer MEDICARE, BC ==
--- NOTE | 2020-12-18 08:57 | XRAY Report ---
PROCEDURE: Wrist 4 View LT INDICATIONS: L WRIST PX TECHNIQUE: views of the wrist were acquired. COMPARISON: None. FINDINGS: Bones: No fractures or dislocations. No suspicious bony lesions. Triscaphe and first CMC joint dege neration. Prominent osteophyte formation. Soft tissues: No suspicious soft tissue calcifications. IMPRESSION: Degenerative changes as above. If the patient's pain or other symptoms persist, consider further evaluation with MRI. . Reviewed by: Rodo Lombardo MD on 12/18/2020 8:56 AM PDT Approved by: Rodo Lombardo MD on 12/18/2020 8:56 AM PDT Station ID: [id number]
== END 2020-12-17 23:59 | disposition home or self-care (01) ==
LOC: DI.N 07:00
PROVIDERS: ATTEND Family Medicine
DX: M25.532 Pain in left wrist (principal); M19.032 Primary osteoarthritis, left wrist

== ENCOUNTER 2021-02-15 10:04 | Outpatient (CLI) | payer MEDICARE, BC ==
--- NOTE | 2021-02-15 10:45 | XRAY Report ---
PROCEDURE: Chest 2 View X-Ray INDICATIONS: COUGH TECHNIQUE: 2 view(s) of the chest. COMPARISON: 02/21/2019 chest x-ray FINDINGS: Surgical changes and devices: None. Lungs and pleura: No pleural effusions or pneumothorax. Lungs are clear. Mediastinum: Mediastinal contours are normal. Heart size is normal. Bones and chest wall: No suspicious bony abnormalities. Soft tissues appear unremarkable. IMPRESSION: No acute process. Reviewed by: Rhianna Fuentes MD on 02/15/2021 10:44 AM PDT Approved by: Rhianna Fuentes MD on 02/15/2021 10:44 AM PDT Station ID: [id number]
== END 2021-02-15 23:59 | disposition home or self-care (01) ==
LOC: DI.N 10:04
PROVIDERS: ATTEND Family Medicine
DX: R05 Cough (principal); Z20.822 Contact with and (suspected) exposure to COVID-19
CPT/HCPCS: 71046; U0004

== ENCOUNTER 2021-02-15 10:05 | Outpatient (CLI) | payer MEDICARE, BC | END 2021-02-15 23:59 | disposition home or self-care (01) | LOC: LAB.N 10:05 | PROVIDERS: ATTEND Family Medicine | DX: R05 Cough (principal); Z20.822 Contact with and (suspected) exposure to COVID-19 ==

== ENCOUNTER 2021-03-26 10:45 | Outpatient (CLI) | payer MEDICARE, BC ==
--- NOTE | 2021-03-26 17:22 | XRAY Report ---
PROCEDURE: Shoulder 2 View RT INDICATIONS: SPRAIN OF R SHOULDER TECHNIQUE: 2 views of the shoulder were acquired. COMPARISON: None. FINDINGS: Bones: No fractures or dislocations. There is mild to moderate osteoarthritis at the AC joint. No s uspicious bony lesions. Visualized ribs appear intact. Soft tissues: No suspicious soft tissue calcifications. IMPRESSION: Mild to moderate AC joint osteoarthritis. No acute trauma found. Reviewed by: Marquez Messer MD on 03/26/2021 5:20 PM PDT Approved by: Marquez Messer MD on 03/26/2021 5:20 PM PDT Station ID: [id number]
== END 2021-03-26 23:59 | disposition home or self-care (01) ==
LOC: DI.N 10:45
PROVIDERS: ATTEND Nurse Practitioner
DX: S43.491A Other sprain of right shoulder joint, initial encounter (principal); M19.011 Primary osteoarthritis, right shoulder

== ENCOUNTER 2021-07-24 11:51 | Outpatient (CLI) | payer MEDICARE, BC ==
--- NOTE | 2021-08-01 02:21 | XRAY Report ---
PROCEDURE: Knee 3 View RT INDICATIONS: CONTUSION OF R KNEE TECHNIQUE: 3 views of the right knee(s) were acquired. COMPARISON: None. FINDINGS: Bones: No fractures or dislocations. No suspicious bony lesions. Moderate to severe medial and mod erate patellofemoral compartment narrowing. Small paratracheal or osteophytes are present. No erosion s. Soft tissues: Minimal joint effusion. No suspicious soft tissue calcifications. IMPRESSION: Arthritic changes most severe in the medial compartment as above. Reviewed by: Kate Norman MD on 08/01/2021 12:44 AM PDT Approved by: Kate Norman MD on 08/01/2021 12:44 AM PDT Station ID: [id number]
== END 2021-07-24 23:59 ==
LOC: DI.N 11:51
PROVIDERS: ATTEND Nurse Practitioner
DX: S80.01XA Contusion of right knee, initial encounter (principal); M17.11 Unilateral primary osteoarthritis, right knee

== ENCOUNTER 2022-02-05 10:45 | Outpatient (CLI) | payer MEDICARE, BC ==
--- NOTE | 2022-02-05 11:17 | XRAY Report ---
PROCEDURE: Chest 2 View X-Ray INDICATIONS: UNSPECIFIED ASTHMA/ACUTE UPPER RESPIRATORY INFECTION TECHNIQUE: 2 view(s) of the chest. COMPARISON: February 15, 2021 FINDINGS: SUPPORT DEVICES: None. LUNGS/PLEURA: Coarsened interstitial markings. Faint nodular density in the left midlung zone, measur ing up to 9.8 mm. No focal consolidation, pleural effusion or space-occupying pneumothorax. MEDIASTINUM: The cardiomediastinal silhouette is within normal limits. BONES/SOFT TISSUES: No acute abnormality. IMPRESSION: 1.No acute cardiopulmonary abnormality. 2.Faint nodular density in the left midlung zone, measuring 9.[address] imaging for further e valuation. Reviewed by: Willian Graham MD on 02/05/2022 11:15 AM PDT Approved by: Willian Graham MD on 02/05/2022 11:15 AM PDT Station ID: [id number]
== END 2022-02-05 10:46 | disposition home or self-care (01) ==
LOC: DI 10:45
PROVIDERS: ATTEND Internal Medicine
DX: R91.8 Other nonspecific abnormal finding of lung field (principal); J45.909 Unspecified asthma, uncomplicated; J06.9 Acute upper respiratory infection, unspecified

== ENCOUNTER 2022-02-13 14:08 | Outpatient (CLI) | payer MEDICARE, BC ==
--- NOTE | 2022-02-13 17:02 | DEXA Report ---
PROCEDURE: Dexa Spine and/or Hip INDICATIONS: OSTEOPOROSIS TECHNIQUE: Dual energy x-ray absorptiometry (DXA) was performed on a [employer] System. Regions measur ed are the AP Spine, femoral neck, and if needed forearm. COMPARISON: 08/21/2020 and 08/24/2017. FINDINGS: Lumbar Spine: Bone Mineral Density 0.947 g/cm/cm,T score -1.9, osteopenia Left Hip: Bone Mineral Density 0.616 g/cm/cm,T score -3.1, osteoporosis Left Femoral Neck: Bone Mineral Density 0.637 g/cm/cm, T score -2.9, osteoporosis. (T score greater or equal to -1.0: NORMAL) (T score from -1.1 to -2.4: OSTEOPENIA) (T score less than or equal to -2.5 to: OSTEOPOROSIS) Impression: Osteoporosis. Bone marrow density has decreased 0.2% in the interval since prior exam obtained 2019. Patients with diagnosis of osteoporosis or osteopenia should have regular bone mineral density assess ment. For those eligible for Medicare, routine testing is allowed once every 2 years. Testing frequ ency can be increased for patients who have rapidly progressing disease or for those who are receivin g medical therapy to restore bone mass. Reviewed by: Lorena Bhatt MD, PhD on 02/13/2022 5:00 PM PDT Approved by: Lorena Bhatt MD, PhD on 02/13/2022 5:00 PM PDT Station ID: [id number]
== END 2022-02-13 14:09 | disposition home or self-care (01) ==
LOC: DI 14:08
PROVIDERS: ATTEND Obstetrics & Gynecology
DX: M81.0 Age-related osteoporosis without current pathological fracture (principal)

== ENCOUNTER 2022-09-04 06:59 | Outpatient (CLI) | payer MEDICARE, BC ==
--- NOTE | 2022-09-04 10:50 | Ultrasound Report ---
PROCEDURE: Abdomen Limited INDICATIONS: LLQ ABDOMINAL SWELLING, MASS AND LUMP TECHNIQUE: Real-time focused scanning was performed of the abdomen, with image documentation. COMPARISON: None FINDINGS: Ultrasound is performed in the area of clinical concern over an area of a left lower quadr ant swelling. Imaging findings show no evidence for inguinal hernia or other solid or cystic abnormal ity. IMPRESSION: 1. No significant findings in the area of clinical concern. No hernia identified. Reviewed by: Ari Chung MD on 09/04/2022 10:49 AM [facility] Approved by: Ari Chung MD on 09/04/2022 10:49 AM PST Station ID: [id number]
== END 2022-09-04 07:00 | disposition home or self-care (01) ==
LOC: DI 06:59
PROVIDERS: ATTEND Physician Assistant
DX: R19.04 Left lower quadrant abdominal swelling, mass and lump (principal)

== ENCOUNTER 2022-11-20 13:49 | Outpatient (CLI) | payer MEDICARE, BC ==
--- NOTE | 2022-11-20 16:35 | XRAY Report ---
PROCEDURE: Chest 2 View X-Ray INDICATIONS: COUGH,SOB TECHNIQUE: 2 views of the chest were acquired. COMPARISON: Chest x-ray, 02/05/2022. FINDINGS: Surgical changes and devices: None. Lungs and pleura: Mild hyperinflation suggesting COPD. No pleural effusions or pneumothorax. Lungs are clear. Mediastinum: Mediastinal contours are normal. Heart size is normal. Bones and chest wall: No suspicious bony abnormalities. Soft tissues appear unremarkable. IMPRESSION: 1. No acute cardiopulmonary disease. 2. COPD. Reviewed by: Valentín Romano MD on 11/20/2022 4:33 PM PST Approved by: Valentín Romano MD on 11/20/2022 4:33 PM [facility] Station ID: [id number]
== END 2022-11-20 13:50 | disposition home or self-care (01) ==
LOC: DI 13:49
PROVIDERS: ATTEND Physician Assistant
DX: J44.9 Chronic obstructive pulmonary disease, unspecified (principal)

== ENCOUNTER 2022-11-21 09:03 | Emergency (ER) | payer MEDICARE, BC ==
[2022-11-21 09:13] VITALS: BP 123/68
--- NOTE | 2022-11-21 09:17 | ED Physician Documentation ---
PD HPI URI - Stated complaint Stated Complaint: SOA - Chief complaint Chief Complaint: Resp - History obtained from History obtained from: Patient - History of Present Illness Timing - onset: How many weeks ago (1) Timing duration: Weeks (1) Timing details: Gradual onset, Still present (cough and sputum continue to worsen.) Associated symptoms: Chills, Sore throat (scratchy), Productive cough. No: Bilateral edema Contributing factors: COPD / asthma. No: Sick contact, Travel Improves by: Medication Worsened by: Activity Recently seen: Clinic (4 days ago and Rx with prednisone which she has been taking, along with her albuterol MDI/neb, and is not improving (less wheezing moderately, but worsened couhg/sputum).) Review of Systems Constitutional: reports: Chills, Myalgias Cardiac: denies: Chest pain / pressure Respiratory: reports: Dyspnea, Cough, Wheezing GI: denies: Vomiting, Diarrhea PD PAST MEDICAL HISTORY - Past Medical History Cardiovascular: High cholesterol Respiratory: Asthma Musculoskeletal: Osteoarthritis - Past Surgical History 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 HEENT: Tonsil/Adenoidectomy - Present Medications Home Medications: Ambulatory Orders Medication Instructions Recorded Confirmed traMADol [Ultram] 50 - 100 mg PO Q6H PRN #20 tablet 02/21/19 Doxycycline Hyclate 100 mg PO BID 7 Days #14 cap 11/21/22 - Allergies Allergies/Adverse Reactions: Allergies Allergy/AdvReac Type Severity Reaction Status Date / Time erythromycin base Allergy Unknown Verified 11/21/22 09:13 Penicillins Allergy Unknown Verified 11/21/22 09:13 Sulfa (Sulfonamide Allergy Unknown Verified 11/21/22 09:13 Antibiotics) PD ED PE NORMAL - Vitals Vital signs reviewed: Yes (good sats.) - General General: Alert and oriented X 3, No acute distress, Well developed/nourished - HEENT HEENT: Pharynx benign - Neck Neck: Supple, no meningeal sign, No adenopathy - Cardiac Cardiac: RRR, No murmur - Respiratory Respiratory: No respiratory distress. No: Clear bilaterally (some coarse sounds right base and diffuse exp wheezing with cough. ) - Derm Derm: Normal color, Warm and dry Results - Vitals Vitals: Vital Signs - 24 hr 11/21/22 11/21/22 11/21/22 09:08 09:43 09:49 Temperature 36.8 C Heart Rate 75 72 74 Respiratory 18 16 18 Rate Blood Pressure 123/68 O2 Saturation 100 100 Oxygen O2 Source Room air - Labs Labs: Laboratory Tests 11/21/22 09:48 INR (Fingerstick) 2.9 H PD Medical Decision Making - ED course Complexity details: reviewed results (I looked at the chest x-ray she had done yesterday outpatient and it did not show any infiltrates pneumothorax or effusi ons.The radiology report on it was normal as well except showing some hyperaeration consistent with COPD.), considered differential (The patient has had a cough and increased wheezing for over a week. She has been on steroids for 5 days. She is having increasing cough and sputum production and is concerned about secondary bacterial bronchitis. This is not unreasonable.), d/w patient Drug Therapy Requiring Monitoring for Toxicity: check INR coumadin level as will be affected by current steroids and Rx antibiotics. ED course: The patient is concerned about a secondary bronchitis and that she is not improving with just the steroids and inhaler and is having increased sputum production. This has occurred in the past with her asthma flareups. Is not unreasonable actually to go with an antibiotic in the setting and articles in the literature suggest there is a benefit of antibiotics in those with underlying lung disease flareups. She is allergic to several medicines. We settled on doxycycline as a choice and I will send this to [facility]. She is on warfarin and has been on steroids and will be starting antibiotics so we did get a hold blood INR today to establish her level knowing that it will be distorted likely from the medications. Departure - Departure Clinical Impression: Acute asthma exacerbation, Bronchitis, acute, Anticoagulant long-term use Condition: Stable Record reviewed to determine appropriate education?: Yes Follow-Up: Omer Park MD [Primary Care Provider] - Prescriptions: Doxycycline Hyclate 100 mg PO BID 7 Days #14 cap Comments: Continue with your current albuterol inhaler and nebulizer 4 times daily and extra times if needed. Continue with the current steroid dosing. Add doxycycline twice daily for a week. Stay well-hydrated. Continue with your tea and honey for your cough. This works comparable to most other cough medicines. I sent your prescription for the antibiotic to [facility]. Recheck if worsening. Your INR today is 2.9 which is reasonable. Continue with your current medications and Coumadin dose. Recheck your Coumadin level in about a week as the antibiotics can potentially affect the metabolism of the Coumadin.
[2022-11-21] MEDS ORDERED: IPRATROPIUM/ALBUTEROL 3 ML NEB INH STA (09:30)
[2022-11-21] MEDS ORDERED: DOXYCYCLINE 100 MG TABLET PO STA (09:31)
[2022-11-21] MEDS ORDERED: ALBUTEROL NEB 2.5 MG/3 ML INH STA (09:44)
[2022-11-21] MEDS ORDERED: ALBUTEROL NEB 2.5 MG/3 ML INH ONE (09:48)
== END 2022-11-21 10:13 | disposition home or self-care (01) ==
LOC: ED 09:03
DX: J45.901 Unspecified asthma with (acute) exacerbation (principal); J20.9 Acute bronchitis, unspecified; Z79.01 Long term (current) use of anticoagulants
CPT/HCPCS: 36416; 85610; 94640; 99283; 99284; A9270

== ENCOUNTER 2022-12-10 17:03 | Outpatient (CLI) | payer MEDICARE, BC ==
--- NOTE | 2022-12-11 10:13 | Ultrasound Report ---
PROCEDURE: Duplex Ext Veins Left INDICATIONS: LEFT DVT TECHNIQUE: Real-time imaging, as well as color and pulse Doppler interrogation, were performed of the lower extr emity deep veins from the inguinal ligament to the popliteal fossa. COMPARISON: None. FINDINGS: The deep veins are normally compressible, and free of intraluminal thrombus. Color and pu lse Doppler demonstrate normal phasic intraluminal flow. There is normal augmentation response to di stal compression maneuver. IMPRESSION: No evidence acute DVT, left lower extremity. Reviewed by: Bryon Cottrell MD on 12/11/2022 10:12 AM PDT Approved by: Bryon Cottrell MD on 12/11/2022 10:12 AM PDT Station ID: [id number]
== END 2022-12-10 17:04 | disposition home or self-care (01) ==
LOC: DI 17:03
PROVIDERS: ATTEND Family Medicine
DX: I82.402 Acute embolism and thrombosis of unspecified deep veins of left lower extremity (principal)

== ENCOUNTER 2023-05-18 10:10 | Outpatient (CLI) | payer MEDICARE, BC ==
--- NOTE | 2023-05-19 11:46 | Mammography Report ---
BILATERAL DIGITAL SCREENING MAMMOGRAM 3D/2D: 05/18/2023 CLINICAL: Routine screening. Comparison is made to exams dated: 05/19/2022 mammogram, 11/21/2019 mammogram, 09/13/2018 mammogram, 1 10/24/2016 mammogram, 08/22/2016 mammogram, and 03/20/2015 mammogram - [facility]. Both breasts are extremely dense, which lowers the sensitivity of mammography (category d />75% gland ular tissue). There are benign vascular calcifications in both breasts. No significant masses, calcifications, or other findings are seen in either breast. There has been no significant interval change. IMPRESSION: BENIGN There is no mammographic evidence of malignancy. A 1 year screening mammogram is recommended. Based on the Tyrer Cuzick model (a risk assessment model) the patients lifetime risk is 7.6% and her 10 year risk is 6.2%. According to the ACR, ACS, and NCCN guidelines, an annual breast MRI exam caryn g with mammogram is recommended if the patients lifetime risk is 20% or greater. This exam was interpreted at Station ID: [id number]. NOTE: For mammograms, a report in lay terms will be sent to the patient. Approximately 15% of breast malignancies will not be visualized mammographically. In the management of a palpable breast mass, a negative mammogram must not discourage biopsy of a clinically suspicious lesion. Electronically Signed By: Narinder day/catherine:05/18/2023 14:02:06 letter sent: No_Letter ACR BI-RADS Category 2: Benign Finding(s) 3342F PARENCHYMAL PATTERN: (VD) - The breast(s) demonstrate(s) extremely dense parenchyma, limiting the sen sitivity of mammography. BI-RADS CATEGORY: (2) - 2 Mammogram [id number] 1 year screening LATERALITY: (B)
== END 2023-05-18 10:11 | disposition home or self-care (01) ==
LOC: DI.N 10:10
PROVIDERS: ATTEND Obstetrics & Gynecology
DX: Z12.31 Encounter for screening mammogram for malignant neoplasm of breast (principal)

== ENCOUNTER 2023-05-19 12:25 | Outpatient (CLI) | payer MEDICARE, BC ==
--- NOTE | 2023-05-19 13:41 | XRAY Report ---
PROCEDURE: Ankle 3 View LT INDICATIONS: PAIN IN LEFT ANKLE TECHNIQUE: 3 views of the ankle were acquired. COMPARISON: X-ray foot 05/19/2023 FINDINGS: Bones: No fractures or dislocations. Scattered IP degenerative change. Ankle mortise is normally al igned. No suspicious bony lesions. Soft tissues: No tibiotalar joint effusion. Achilles tendon appears normal. IMPRESSION: No visualized acute fracture or dislocation. However, occult injury cannot be excluded. Recommend radha rt interval imaging follow-up in 7-10 days as clinically indicated for additional evaluation. Reviewed by: Kate Norman MD on 05/19/2023 1:40 PM PDT Approved by: Kate Norman MD on 05/19/2023 1:40 PM PDT Station ID: [id number]
--- NOTE | 2023-05-19 13:42 | XRAY Report ---
PROCEDURE: Pelvis 1 View INDICATIONS: PAIN IN LEFT HIP TECHNIQUE: 1 view(s) of the pelvis acquired. COMPARISON: None. FINDINGS: Bones: No fractures or dislocations. No suspicious bony lesions. Moderate bilateral degenerative hip joint space narrowing. Soft tissues: Visualized bowel gas pattern is normal. No suspicious soft tissue calcifications. IMPRESSION: No visualized acute fracture or dislocation. However, occult injury cannot be excluded. Recommend radha rt interval imaging follow-up in 7-10 days as clinically indicated for additional evaluation. Reviewed by: Kate Norman MD on 05/19/2023 1:41 PM PDT Approved by: Kate Norman MD on 05/19/2023 1:41 PM PDT Station ID: [id number]
--- NOTE | 2023-05-19 13:42 | XRAY Report ---
PROCEDURE: Foot 3 View LT INDICATIONS: PAIN IN LEFT FOOT TECHNIQUE: 3 views of the foot were acquired. COMPARISON: X-ray ankle 05/19/2023 FINDINGS: Bones: No fractures or dislocations. No suspicious bony lesions. IP degenerative change. Soft tissues: No suspicious soft tissue calcifications or masses. IMPRESSION: No visualized acute fracture or dislocation. However, occult injury cannot be excluded. Recommend radha rt interval imaging follow-up in 7-10 days as clinically indicated for additional evaluation. Reviewed by: Kate Norman MD on 05/19/2023 1:40 PM PDT Approved by: Kate Norman MD on 05/19/2023 1:40 PM PDT Station ID: [id number]
== END 2023-05-19 12:26 | disposition home or self-care (01) ==
LOC: DI 12:25
PROVIDERS: ATTEND Nurse Practitioner Family
DX: S99.912A Unspecified injury of left ankle, initial encounter (principal); M25.552 Pain in left hip

== ENCOUNTER 2024-01-23 08:00 | Outpatient (CLI) | payer MEDICARE, BC | END 2024-01-23 08:01 | disposition home or self-care (01) | LOC: LAB.N 08:00 | PROVIDERS: ATTEND Physician Assistant Medical | DX: Z53.9 Procedure and treatment not carried out, unspecified reason (principal) ==

== ENCOUNTER 2024-01-25 14:50 | Emergency (ER) | payer MEDICARE, BC ==
[2024-01-25 15:02] VITALS: O2SAT 98
--- NOTE | 2024-01-25 15:12 | ED Physician Documentation ---
PD HPI DYSPNEA - Stated complaint Stated Complaint: SOA,LIGHTHEADED,CHEST PX - Chief complaint Chief Complaint: Resp - Additional information Additional information: 73-year-old lady with asthma/COPD and with URI symptoms for about a week. She is feeling increasing cough and chest congestion cough productive of some green sputum. She started herself on 20 mg of prednisone yesterday. No chills or systemic signs of illness. No chest pain. 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 HEENT: Tonsil/Adenoidectomy - Present Medications Home Medications: Ambulatory Orders Medication Instructions Recorded Confirmed traMADol [Ultram] 50 - 100 mg PO Q6H PRN #20 tablet 02/21/19 Doxycycline Hyclate 100 mg PO BID 7 Days #14 cap 11/21/22 Doxycycline [Vibramycin] 100 mg PO BID #14 tablet 01/25/24 predniSONE [Deltasone] 20 mg PO DAILY #5 tab 01/25/24 - Allergies Allergies/Adverse Reactions: Allergies Allergy/AdvReac Type Severity Reaction Status Date / Time erythromycin base Allergy Unknown Verified 01/25/24 14:58 Penicillins Allergy Unknown Verified 01/25/24 14:58 Sulfa (Sulfonamide Allergy Unknown Verified 01/25/24 14:58 Antibiotics) - Social History Does the pt smoke?: No Smoking Status: Never smoker Does the pt drink ETOH?: No Does the pt have substance abuse?: No - Immunizations Immunizations are current?: Yes PD ED PE NORMAL - General General: Alert and oriented X 3, No acute distress, Well developed/nourished - HEENT HEENT: Atraumatic, Pharynx benign - Neck Neck: Supple, no meningeal sign - Cardiac Cardiac: RRR - Respiratory Respiratory: No respiratory distress, Clear bilaterally - Abdomen Abdomen: Normal bowel sounds - Extremities Extremities: No deformity, No edema, No calf tenderness / cord Results - Vitals Vitals: Vital Signs - 24 hr 04/29/24 04/29/24 14:54 14:58 Temperature 36.8 C 36.8 C Heart Rate 86 86 Respiratory 20 20 Rate Blood Pressure 140/72 H 140/72 H O2 Saturation 98 98 Oxygen O2 Source Room air - Rads (name of study) cxr Relevant Findings:: Final report received, EMP independent interpretation of test (clear lungs, no pna) PD Medical Decision Making - ED course Complexity details: reviewed old records, reviewed results, re-evaluated sanjuanita treadwell, considered differential ED course: Clear lungs on chest x-ray. Will Rx prednisone for 5 days and give her doxycycline for bronchitis given her degree of green sputum production. vitals stable and well appearing, good for outpt management Departure - Departure Disposition: 01 Home, Self Care Clinical Impression: Bronchitis Condition: Good Instructions: ED Bronchitis Asthmatic Prescriptions: predniSONE [Deltasone] 20 mg PO DAILY #5 tab Doxycycline [Vibramycin] 100 mg PO BID #14 tablet Comments: Your x-ray looks clear today. Lets bump up your steroids to a more therapeutic dose for 5 days. I will prescribe doxycycline for bronchitis for you. Recheck with PCP in a week Forms: PCP List
--- NOTE | 2024-01-25 15:42 | XRAY Report ---
PROCEDURE: Chest 2V INDICATIONS: cough, wheezing TECHNIQUE: 2 views of the chest were acquired. COMPARISON: 11/20/2022 FINDINGS: Surgical changes and devices: None. Lungs and pleura: No pleural effusions or pneumothorax. Lungs are clear. Mediastinum: Mediastinal contours appear normal. Heart size is normal. Bones and chest wall: No suspicious bony lesions. Overlying soft tissues appear unremarkable. IMPRESSION: No acute cardiopulmonary process. Reviewed by: Thomas Mcdonald MD on 01/25/2024 3:40 PM PDT Approved by: Thomas Mcdonald MD on 01/25/2024 3:40 PM PDT Station ID: [id number]
[2024-01-25 16:16] VITALS: BP 128/70
== END 2024-01-25 16:10 | disposition home or self-care (01) ==
LOC: ED 14:50
DX: J40 Bronchitis, not specified as acute or chronic (principal); J44.9 Chronic obstructive pulmonary disease, unspecified; E78.00 Pure hypercholesterolemia, unspecified; Z79.899 Other long term (current) drug therapy
CPT/HCPCS: 99283; 99284